=== PATIENT | female | born 1970 | race Two or more races ===

== ENCOUNTER 2021-01-14 14:11 | Inpatient (IN) | payer MEDICAID, OTHER ==
[~2021-01-14] VITALS: Ht 162.6 cm; Wt 76.1 kg
[2021-01-14] MEDS ORDERED: ZINC SULFATE 220mg CAP or TAB PO ONE (15:00)
[2021-01-14] MEDS ORDERED: DexAMETHasone SOD PHOS 10MG/1ML VIAL INJ IV ONE (15:00)
[2021-01-14] MEDS ORDERED: ASCORBIC ACID 500 MG TAB PO ONE (15:00)
[2021-01-14] MEDS ORDERED: AZITHROMYCIN 500MG/ 250ML 250 ML IV ONE (15:00)
[2021-01-14] MEDS ORDERED: cefTRIAXone 1GM/50ML D5W 50 ML IV ONE (15:00)
[2021-01-14 16:20] LABS: Basophils # (auto) 0 10 ^3/uL (0-0.2); Basophils % (auto) 0.2 % (0.0-2.0); Eosinophils # (auto) 0 10 ^3/uL (0-0.8); Hematocrit 35.1 % (36.0-46.0); Hemoglobin 11.7 g/dL (12.2-16.2); Lymphocytes % (auto) 17.1 % (10.0-50.0); Mean Corpuscular Hemoglobin 27.1 pg (28.0-32.0); Mean Corpuscular Hgb Conc. 33.5 g/dL (32.0-36.0); Mean Corpuscular Volume 80.9 fL (80.0-100.0); Monocytes # (auto) 0.5 10 ^3/uL (0-1.3); Monocytes % (auto) 7.7 % (0.0-12.0); Neutrophils # (auto) 4.6 10 ^3/uL (1.6-8.6); Nucleated Red Blood Cells % 0.1 %; Red Blood Cells 4.34 10^6/uL (4.0-5.20); Red Cell Distribution Width 13.2 % (11.8-14.3); White Blood Cell 6.1 10^3/uL (4.4-10.8)
[2021-01-14 16:37] LABS: Albumin 2.1 g/dL (3.4-5.0)
[2021-01-14 16:41] LABS: BUN/Creatinine Ratio 46.3; Bilirubin, Total 0.4 mg/dL (0.2-1.0); Total Protein 6.3 g/dL (6.4-8.2)
[2021-01-14] MEDS ORDERED: REMDESIVIR PER PHARMACY 0 ML IV SCH (19:15)
[2021-01-14] MEDS ORDERED: DEXTROSE (50%) 50ML SYRG IV PRN (19:15)
[2021-01-14] MEDS ORDERED: ACETAMINOPHEN 500 MG TAB PO PRN (19:15)
[2021-01-14] MEDS ORDERED: NITROGLYCERIN 0.4 MG SL TAB SL PRN (19:15)
[2021-01-14] MEDS ORDERED: MORPHINE SULFATE INJECTION 2 MG/ML SYRG IV PRN (19:15)
[2021-01-14] MEDS ORDERED: PROMETHAZINE W/CODEINE 5 ML ORAL SYRUP PO PRN (19:30)
[2021-01-14] MEDS: ACCU-CHEK COMFORT CURVE STRIP VI SCH (21:47)
[2021-01-14] MEDS: ENOXAPARIN SOD 40 MG/0.4 ML SYRINGE SC SCH (21:56)
[2021-01-14] MEDS: InsuLIN REG 1unit/0.01ml Soln (100units/ml) SC SCH (21:57)
[2021-01-14] MEDS: BUDESONIDE (INHALATION) 180 MCG IH IN SCH ×2 (21:58→22:20)
[2021-01-14] MEDS: ALBUTEROL SULF HFA 90MCG INH 200DOSE IN PRN (22:20)
[2021-01-14] MEDS ORDERED: REMDESIVIR 200 MG in NS 210ml LOADING DOSE ADULT IV ONE (22:30)
[2021-01-15 03:12] VITALS: BP 133/68
[2021-01-15] MEDS: ALBUTEROL SULF HFA 90MCG INH 200DOSE IN PRN ×2 (06:04→19:45)
[2021-01-15] MEDS: BUDESONIDE (INHALATION) 180 MCG IH IN SCH (06:04)
[2021-01-15 06:37] LABS: Potassium 3.7 mmol/L (3.5-5.1)
[2021-01-15 06:45] LABS: Albumin 2.1 g/dL (3.4-5.0); BUN/Creatinine Ratio 47.2; Bilirubin, Total 0.3 mg/dL (0.2-1.0); Calcium 8.3 mg/dL (8.5-10.1); Total Protein 6.1 g/dL (6.4-8.2)
[2021-01-15] MEDS: InsuLIN REG 1unit/0.01ml Soln (100units/ml) SC SCH ×4 (06:47→21:56)
[2021-01-15] MEDS: ACCU-CHEK COMFORT CURVE STRIP VI SCH ×4 (06:47→21:46)
[2021-01-15] MEDS: DexAMETHasone SOD PHOS 10MG/1ML VIAL INJ IV SCH (09:36)
[2021-01-15] MEDS: CHOLECALCIFEROL (VITD3) 2,000 UNIT CAP/TAB PO SCH (09:37)
[2021-01-15] MEDS: ASCORBIC ACID 1,000 MG TAB PO SCH (09:37)
[2021-01-15] MEDS: ZINC SULFATE 220mg CAP or TAB PO SCH (09:37)
[2021-01-15] MEDS: ENOXAPARIN SOD 40 MG/0.4 ML SYRINGE SC SCH ×2 (09:37→21:54)
[2021-01-15] MEDS: AZITHROMYCIN 500MG/ 250ML 250 ML IV SCH (10:00)
[2021-01-15 12:15] LABS: Thyroid Stimulating Hormone 1.28 uIU/mL (0.358-3.74)
[2021-01-15] MEDS: PIPERACILLIN-TAZOB 3.375GM 100 ML IV SCH ×3 (13:45→23:54)
[2021-01-15] MEDS: REMDESIVIR 100mg 100 MG in SODIUM CHL 0.9% 230 ML IV SCH (15:02)
[2021-01-15] MEDS ORDERED: ERGOCALCIFEROL 50,000 UNIT(1.25MG) CAP PO SCH (15:30)
[2021-01-15] MEDS ORDERED: ALBUMIN 5% 250 ML IV ONE (20:30)
[2021-01-15] MEDS: INSULIN LANTUS (GLARGINE) 1 /0.01ml (100units/ml) SC SCH (21:54)
[2021-01-16] MEDS: BUDESONIDE (INHALATION) 180 MCG IH IN SCH ×3 (00:04→20:00)
[2021-01-16 00:05] VITALS: BP 150/72
[2021-01-16] MEDS ORDERED: INFLUENZA QUAD 2020-2021 0.5 ML SYRG IM ONE (01:15)
[2021-01-16 05:00] VITALS: BP 151/71
[2021-01-16] MEDS: PIPERACILLIN-TAZOB 3.375GM 100 ML IV SCH ×4 (06:40→23:43)
[2021-01-16] MEDS: ACCU-CHEK COMFORT CURVE STRIP VI SCH ×4 (06:48→21:44)
[2021-01-16 06:54] LABS: Potassium 3.5 mmol/L (3.5-5.1)
[2021-01-16] MEDS: InsuLIN REG 1unit/0.01ml Soln (100units/ml) SC SCH ×4 (06:54→21:53)
[2021-01-16 07:05] LABS: Albumin 2.4 g/dL (3.4-5.0); BUN/Creatinine Ratio 34.6; Bilirubin, Total 0.4 mg/dL (0.2-1.0); Calcium 8.6 mg/dL (8.5-10.1); Total Protein 6.5 g/dL (6.4-8.2)
[2021-01-16 08:49] VITALS: BP 140/68
[2021-01-16] MEDS: DexAMETHasone SOD PHOS 10MG/1ML VIAL INJ IV SCH (10:44)
[2021-01-16] MEDS: AZITHROMYCIN 500MG/ 250ML 250 ML IV SCH (10:44)
[2021-01-16] MEDS: ZINC SULFATE 220mg CAP or TAB PO SCH (10:44)
[2021-01-16] MEDS: ASCORBIC ACID 1,000 MG TAB PO SCH (10:45)
[2021-01-16] MEDS ORDERED: FUROSEMIDE 20 MG/2 ML VIAL IV ONE (10:45)
[2021-01-16] MEDS: ENOXAPARIN SOD 40 MG/0.4 ML SYRINGE SC SCH ×2 (10:45→21:45)
[2021-01-16] MEDS: CHOLECALCIFEROL (VITD3) 2,000 UNIT CAP/TAB PO SCH (10:45)
[2021-01-16] MEDS: INSULIN LANTUS (GLARGINE) 1 /0.01ml (100units/ml) SC SCH ×2 (10:47→21:51)
[2021-01-16] MEDS: ALBUTEROL SULF HFA 90MCG INH 200DOSE IN PRN ×2 (12:44→20:00)
[2021-01-16 13:00] VITALS: BP 144/83
[2021-01-16] MEDS: REMDESIVIR 100mg 100 MG in SODIUM CHL 0.9% 230 ML IV SCH (16:10)
[2021-01-16 17:00] VITALS: BP 113/67
[2021-01-16 22:00] VITALS: BP 111/75
[2021-01-17 05:00] VITALS: BP 132/78
[2021-01-17] MEDS: PIPERACILLIN-TAZOB 3.375GM 100 ML IV SCH ×4 (06:18→23:55)
[2021-01-17 06:37] LABS: Potassium 3.2 mmol/L (3.5-5.1)
[2021-01-17 06:48] LABS: Albumin 2.3 g/dL (3.4-5.0); BUN/Creatinine Ratio 42.1; Bilirubin, Total 0.3 mg/dL (0.2-1.0); Calcium 8.5 mg/dL (8.5-10.1); Total Protein 6.2 g/dL (6.4-8.2)
[2021-01-17] MEDS: ACCU-CHEK COMFORT CURVE STRIP VI SCH ×4 (06:51→22:02)
[2021-01-17] MEDS: InsuLIN REG 1unit/0.01ml Soln (100units/ml) SC SCH ×4 (06:51→22:27)
[2021-01-17] MEDS: BUDESONIDE (INHALATION) 180 MCG IH IN SCH ×2 (07:47→22:20)
[2021-01-17] MEDS: ALBUTEROL SULF HFA 90MCG INH 200DOSE IN PRN ×2 (07:47→22:20)
[2021-01-17 08:52] VITALS: BP 116/69
[2021-01-17] MEDS: ZINC SULFATE 220mg CAP or TAB PO SCH (11:16)
[2021-01-17] MEDS: DexAMETHasone SOD PHOS 10MG/1ML VIAL INJ IV SCH (11:16)
[2021-01-17] MEDS: AZITHROMYCIN 500MG/ 250ML 250 ML IV SCH (11:16)
[2021-01-17] MEDS: CHOLECALCIFEROL (VITD3) 2,000 UNIT CAP/TAB PO SCH (11:17)
[2021-01-17] MEDS: ENOXAPARIN SOD 40 MG/0.4 ML SYRINGE SC SCH ×2 (11:17→22:01)
[2021-01-17] MEDS: ASCORBIC ACID 1,000 MG TAB PO SCH (11:17)
[2021-01-17] MEDS: FUROSEMIDE 20 MG/2 ML VIAL IV SCH (11:19)
[2021-01-17] MEDS: INSULIN LANTUS (GLARGINE) 1 /0.01ml (100units/ml) SC SCH ×2 (11:22→22:01)
[2021-01-17 13:00] VITALS: BP 138/78
[2021-01-17] MEDS ORDERED: POTASSIUM CHL 20 Meq TABLET PO ONE (15:15)
[2021-01-17] MEDS: REMDESIVIR 100mg 100 MG in SODIUM CHL 0.9% 230 ML IV SCH (16:01)
[2021-01-17 17:00] VITALS: BP 96/61
[2021-01-17] MEDS ORDERED: INSULIN LISPRO (HUMAN) 100 UNITS/ML ML SC ONE (17:45)
[2021-01-17 22:00] VITALS: BP 115/68
[2021-01-18 05:00] VITALS: BP 134/74
[2021-01-18] MEDS: PIPERACILLIN-TAZOB 3.375GM 100 ML IV SCH ×4 (06:35→23:57)
[2021-01-18] MEDS: ACCU-CHEK COMFORT CURVE STRIP VI SCH ×3 (06:37→21:47)
[2021-01-18] MEDS: InsuLIN REG 1unit/0.01ml Soln (100units/ml) SC SCH ×3 (06:44→21:47)
[2021-01-18] MEDS: INSULIN LANTUS (GLARGINE) 1 /0.01ml (100units/ml) SC SCH ×2 (06:45→21:51)
[2021-01-18] MEDS: ALBUTEROL SULF HFA 90MCG INH 200DOSE IN PRN ×2 (07:25→22:45)
[2021-01-18] MEDS: BUDESONIDE (INHALATION) 180 MCG IH IN SCH ×2 (07:25→22:45)
[2021-01-18 08:10] LABS: Potassium 3.5 mmol/L (3.5-5.1)
[2021-01-18 08:22] LABS: Albumin 2.4 g/dL (3.4-5.0); BUN/Creatinine Ratio 37.7; Bilirubin, Total 0.3 mg/dL (0.2-1.0); Calcium 8.6 mg/dL (8.5-10.1); Total Protein 6.4 g/dL (6.4-8.2)
[2021-01-18 09:00] VITALS: BP 114/62
[2021-01-18] MEDS: AZITHROMYCIN 500MG/ 250ML 250 ML IV SCH (09:42)
[2021-01-18] MEDS: DexAMETHasone SOD PHOS 10MG/1ML VIAL INJ IV SCH (09:43)
[2021-01-18] MEDS: ENOXAPARIN SOD 40 MG/0.4 ML SYRINGE SC SCH ×2 (09:43→21:47)
[2021-01-18] MEDS: ASCORBIC ACID 1,000 MG TAB PO SCH (09:43)
[2021-01-18] MEDS: CHOLECALCIFEROL (VITD3) 2,000 UNIT CAP/TAB PO SCH (09:43)
[2021-01-18] MEDS: ZINC SULFATE 220mg CAP or TAB PO SCH (09:43)
[2021-01-18] MEDS: FUROSEMIDE 20 MG/2 ML VIAL IV SCH (09:44)
[2021-01-18 13:00] VITALS: BP 116/73
[2021-01-18] MEDS: REMDESIVIR 100mg 100 MG in SODIUM CHL 0.9% 230 ML IV SCH (15:34)
[2021-01-18 17:00] VITALS: BP 111/63
[2021-01-18] MEDS ORDERED: DEXTROSE (50%) 50ML SYRG IV PRN (17:30)
[2021-01-18] MEDS ORDERED: INSULIN LISPRO (HUMAN) 100 UNITS/ML ML SC ONE (17:30)
[2021-01-18 22:00] VITALS: BP 124/74
[2021-01-19 05:00] VITALS: BP 116/71
[2021-01-19] MEDS: PIPERACILLIN-TAZOB 3.375GM 100 ML IV SCH ×3 (05:53→18:59)
[2021-01-19] MEDS: InsuLIN REG 1unit/0.01ml Soln (100units/ml) SC SCH ×4 (07:00→22:00)
[2021-01-19] MEDS: INSULIN LANTUS (GLARGINE) 1 /0.01ml (100units/ml) SC SCH ×2 (07:00→22:00)
[2021-01-19] MEDS: ACCU-CHEK COMFORT CURVE STRIP VI SCH ×4 (07:07→22:00)
[2021-01-19 07:45] LABS: BUN/Creatinine Ratio 36.7; Calcium 8.3 mg/dL (8.5-10.1); Potassium 3.5 mmol/L (3.5-5.1)
[2021-01-19] MEDS: BUDESONIDE (INHALATION) 180 MCG IH IN SCH ×2 (08:19→22:50)
[2021-01-19] MEDS: ALBUTEROL SULF HFA 90MCG INH 200DOSE IN PRN (08:19)
[2021-01-19 08:50] VITALS: BP 115/67
[2021-01-19] MEDS: ASCORBIC ACID 1,000 MG TAB PO SCH (09:54)
[2021-01-19] MEDS: DexAMETHasone SOD PHOS 10MG/1ML VIAL INJ IV SCH (09:54)
[2021-01-19] MEDS: AZITHROMYCIN 500MG/ 250ML 250 ML IV SCH (09:54)
[2021-01-19] MEDS: ENOXAPARIN SOD 40 MG/0.4 ML SYRINGE SC SCH ×2 (09:54→23:11)
[2021-01-19] MEDS: FUROSEMIDE 20 MG/2 ML VIAL IV SCH (09:55)
[2021-01-19] MEDS: ZINC SULFATE 220mg CAP or TAB PO SCH (10:00)
[2021-01-19] MEDS: CHOLECALCIFEROL (VITD3) 2,000 UNIT CAP/TAB PO SCH (10:00)
[2021-01-19 13:00] VITALS: BP 109/69
[2021-01-19 17:00] VITALS: BP 119/64
[2021-01-19] MEDS ORDERED: DEXTROSE (50%) 50ML SYRG IV PRN (19:30)
[2021-01-19] MEDS ORDERED: INSULIN LANTUS (GLARGINE) 1 /0.01ml (100units/ml) SC SCH (22:00)
[2021-01-19 22:07] VITALS: BP 125/74
[2021-01-20] MEDS: ACCU-CHEK COMFORT CURVE STRIP VI SCH ×8 (00:16→22:15)
[2021-01-20] MEDS: InsuLIN REG 1unit/0.01ml Soln (100units/ml) SC SCH ×5 (00:23→22:29)
[2021-01-20] MEDS: PIPERACILLIN-TAZOB 3.375GM 100 ML IV SCH ×4 (00:33→18:21)
[2021-01-20] MEDS: INSULIN LANTUS (GLARGINE) 1 /0.01ml (100units/ml) SC SCH ×3 (04:21→22:28)
[2021-01-20 05:25] VITALS: BP 106/69
[2021-01-20] MEDS: BUDESONIDE (INHALATION) 180 MCG IH IN SCH ×2 (06:51→23:13)
[2021-01-20] MEDS: ALBUTEROL SULF HFA 90MCG INH 200DOSE IN PRN ×2 (06:52→23:13)
[2021-01-20 07:23] LABS: Calcium 8.3 mg/dL (8.5-10.1); Potassium 3.2 mmol/L (3.5-5.1)
[2021-01-20 07:25] LABS: BUN/Creatinine Ratio 36.1
[2021-01-20 09:00] VITALS: BP 101/62
[2021-01-20] MEDS: FUROSEMIDE 20 MG/2 ML VIAL IV SCH (09:40)
[2021-01-20] MEDS: DexAMETHasone SOD PHOS 10MG/1ML VIAL INJ IV SCH (09:40)
[2021-01-20] MEDS: ENOXAPARIN SOD 40 MG/0.4 ML SYRINGE SC SCH ×2 (09:41→22:00)
[2021-01-20] MEDS: CHOLECALCIFEROL (VITD3) 2,000 UNIT CAP/TAB PO SCH (09:41)
[2021-01-20] MEDS: ZINC SULFATE 220mg CAP or TAB PO SCH (09:41)
[2021-01-20] MEDS: ASCORBIC ACID 1,000 MG TAB PO SCH (09:41)
[2021-01-20 13:00] VITALS: BP 100/64
[2021-01-20 17:18] VITALS: BP 95/54
[2021-01-20 22:19] VITALS: BP 110/70
[2021-01-21] MEDS: InsuLIN REG 1unit/0.01ml Soln (100units/ml) SC SCH ×4 (00:30→17:10)
[2021-01-21] MEDS: ACCU-CHEK COMFORT CURVE STRIP VI SCH ×7 (00:30→17:09)
[2021-01-21] MEDS: PIPERACILLIN-TAZOB 3.375GM 100 ML IV SCH ×3 (00:30→11:59)
[2021-01-21 05:15] VITALS: BP 126/73
[2021-01-21] MEDS: BUDESONIDE (INHALATION) 180 MCG IH IN SCH (07:19)
[2021-01-21] MEDS: ALBUTEROL SULF HFA 90MCG INH 200DOSE IN PRN (07:19)
[2021-01-21 08:00] VITALS: BP 116/64
[2021-01-21 09:00] VITALS: BP 116/64
[2021-01-21 09:17] LABS: BUN/Creatinine Ratio 23.9; Calcium 8.8 mg/dL (8.5-10.1); Potassium 3.5 mmol/L (3.5-5.1)
[2021-01-21] MEDS: FUROSEMIDE 20 MG/2 ML VIAL IV SCH (09:51)
[2021-01-21] MEDS: CHOLECALCIFEROL (VITD3) 2,000 UNIT CAP/TAB PO SCH (09:51)
[2021-01-21] MEDS: ASCORBIC ACID 1,000 MG TAB PO SCH (09:51)
[2021-01-21] MEDS: ZINC SULFATE 220mg CAP or TAB PO SCH (09:51)
[2021-01-21] MEDS: DexAMETHasone SOD PHOS 10MG/1ML VIAL INJ IV SCH (09:51)
[2021-01-21] MEDS: ENOXAPARIN SOD 40 MG/0.4 ML SYRINGE SC SCH (09:52)
[2021-01-21 13:00] VITALS: BP 118/60
[2021-01-21 17:26] VITALS: BP 118/60
== END 2021-01-21 19:50 | disposition home or self-care (01) | DRG 177 ==
LOC: EDSEX 14:11 → EDBD 14:11 → ER 14:14 → TELE 19:14 → TELE-EAST 01-15 23:28
PROVIDERS: ADMIT Nurse Practitioner Acute Care; ATTEND Internal Medicine
PROC: XW033E5 Introduction of Remdesivir Anti-infective into Peripheral Vein, Percutaneous Approach, New Technology Group 5 (ICD-10-PCS; principal; 2021-01-14)
DX: U07.1 COVID-19 (principal); J12.82 Pneumonia due to coronavirus disease 2019; J96.01 Acute respiratory failure with hypoxia; E43 Unspecified severe protein-calorie malnutrition; J69.0 Pneumonitis due to inhalation of food and vomit; D68.59 Other primary thrombophilia; D89.839 Cytokine release syndrome, grade unspecified; E11.65 Type 2 diabetes mellitus with hyperglycemia; E55.9 Vitamin D deficiency, unspecified; Z68.28 Body mass index [BMI] 28.0-28.9, adult
CPT/HCPCS: 36415; 71045; 80048; 80053; 82306; 82728; 82962; 83036; 83605; 83615; 83735; 84443; 85025; 85379; 86141; 87040; 87081; 87426; 93005; 94640; G0378; J1100; J1815; J2543

== ENCOUNTER 2021-12-04 20:36 | Emergency (ER) | payer OTHER ==
[~2021-12-04] VITALS: Ht 167.6 cm; Wt 170.0 kg
[2021-12-04] MEDS ORDERED: HYDROmorphone HCL 2 MG/ML VL/or syr IV ONE (21:30)
[2021-12-04] MEDS ORDERED: ONDANSETRON HCL 4 MG/2 ML VIAL IV ONE (21:30)
[2021-12-04 21:32] LABS: Basophils # (auto) 0 10 ^3/uL (0-0.2); Eosinophils # (auto) 0 10 ^3/uL (0-0.8); Lymphocytes # (auto) 1.6 10 ^3/uL (0.4-5.4); Mean Corpuscular Volume 83.1 fL (80.0-100.0); Monocytes # (auto) 0.2 10 ^3/uL (0-1.3); Neutrophils # (auto) 1.9 10 ^3/uL (1.6-8.6); Nucleated Red Blood Cells % 0.2 %; Red Cell Distribution Width 15.7 % (11.8-14.3); White Blood Cell 3.7 10^3/uL (4.4-10.8)
[2021-12-04 21:34] LABS: Basophils % (auto) 0.3 % (0.0-2.0); Eosinophils % (auto) 0.4 % (0.0-7.0); Hematocrit 29.6 % (36.0-46.0); Hemoglobin 9.6 g/dL (12.2-16.2); Mean Corpuscular Hemoglobin 26.9 pg (28.0-32.0); Mean Corpuscular Hgb Conc. 32.3 g/dL (32.0-36.0); Monocytes % (auto) 5.2 % (0.0-12.0); Neutrophils % (auto) 51.1 % (37.0-80.0); Red Blood Cells 3.56 10^6/uL (4.0-5.20)
[2021-12-04 21:48] LABS: Albumin 3.2 g/dL (3.4-5.0); Calcium 10.1 mg/dL (8.5-10.1); Potassium 3.9 mmol/L (3.5-5.1)
[2021-12-04 21:51] LABS: BUN/Creatinine Ratio 20.6; Bilirubin, Total 0.3 mg/dL (0.2-1.0); Total Protein 9.8 g/dL (6.4-8.2)
[2021-12-05] MEDS ORDERED: HYDROmorphone HCL 2 MG/ML VL/or syr IV ONE ×2 (00:30→02:30)
[2021-12-05] MEDS ORDERED: ONDANSETRON HCL 4 MG/2 ML VIAL IV ONE (00:30)
[2021-12-05 02:58] VITALS: BP 124/69
== END 2021-12-05 02:54 | disposition short-term general hospital (02) ==
LOC: EDBD 20:36 → ER 20:36
DX: S72.002A Fracture of unspecified part of neck of left femur, initial encounter for closed fracture (principal); M89.9 Disorder of bone, unspecified; R07.89 Other chest pain; E11.9 Type 2 diabetes mellitus without complications; Z20.822 Contact with and (suspected) exposure to COVID-19; W01.0XXA Fall on same level from slipping, tripping and stumbling without subsequent striking against object, initial encounter; Y93.89 Activity, other specified; Y92.89 Other specified places as the place of occurrence of the external cause; Y99.8 Other external cause status
CPT/HCPCS: 36415; 70450; 71045; 72125; 72192; 73501; 80053; 84484; 85025; 86850; 86900; 86901; 87426; 93005; 96374; 96375; 96376; 99285; J1170; J2405